=== PATIENT | male | born 1990 | race Caucasian/White ===

== ENCOUNTER 2023-08-18 02:05 | Emergency (ER) | payer OTHER ==
[~2023-08-18] VITALS: Ht 175.3 cm; Wt 70.3 kg
[2023-08-18 02:10] VITALS: BP 119/79; PULSE 98; RESP 19; TEMP 98.3; O2SAT 96
== END 2023-08-18 02:26 ==
LOC: MED 02:05
DX: Z02.89 Encounter for other administrative examinations (principal); V89.2XXA Person injured in unspecified motor-vehicle accident, traffic, initial encounter; Y93.89 Activity, other specified; Y92.410 Unspecified street and highway as the place of occurrence of the external cause; Y99.8 Other external cause status
CPT/HCPCS: 99283